=== PATIENT | male | born 1980 | race Asian ===

== ENCOUNTER 2023-04-24 14:37 | Inpatient (IN) | payer MEDICAID ==
[~2023-04-24] VITALS: Ht 170.2 cm; Wt 67.6 kg
[~2023-04-24 14:37] MED LIST: ACET-868 GT; CARB-273 EACHEYE; CIPR-263 PO; DARB100V SQ; HEPA0.5D3 SQ; IPRA3AMP23 NEB; LANS30CA56 GT; LEVA1.2528 IH; MIDO5TAB4 GT; NUT.237L67 GT; PANCREALIPASE GT; POLY17PO4 GT; SODI473S8 TP; SODI650T GT; SUCR1TAB GT; SULF1TAB48 PO
[2023-04-24] MEDS ORDERED: IV NS 0.9% 1,000 ML BAG IV ONE ×2 (15:00→15:30)
[2023-04-24] MEDS ORDERED: CEFEPIME 1 GM in IV D5W 50 ML IV ONE (15:30)
[2023-04-24] MEDS ORDERED: VANCOMYCIN 1 GM in IV D5W 250 ML IV ONE (15:30)
[2023-04-24 16:20] LABS: BASOPHILS % (AUTO) 0.2 % (0.0-2.0); EOSINOPHILS # (AUTO) 0.1 K/uL (0.0-0.7); EOSINOPHILS % (AUTO) 0.2 % (0.0-6.0); HEMATOCRIT 33 % (39-51); HEMOGLOBIN 10.4 g/dL (13.5-17.5); INR 1.09 (0.91-1.10); LYMPHOCYTES # (AUTO) 1.3 K/uL (0.8-4.8); LYMPHOCYTES % (AUTO) 4.8 % (20.0-44.0); MEAN CORPUSCULAR HEMOGLOBIN 30 PG (26.0-33.0); MEAN CORPUSCULAR HGB CONC 32 g/dl (31.0-36.0); MEAN CORPUSCULAR VOLUME 94 fL (80-96); MONOCYTES # (AUTO) 1.4 K/uL (0.1-1.30); MONOCYTES % (AUTO) 5.1 % (2.0-12.0); NEUTROPHILS # (AUTO) 23.6 K/uL (1.8-8.9); NEUTROPHILS % (AUTO) 89.7 % (43.0-81.0); PARTIAL THROMBOPLASTIN TIME 31.3 SEC (24.3-34.3); PLATELET COUNT (AUTO) 371 K/uL (150-450); PROTHROMBIN TIME 11.4 SECS (9.2-11.1); RED BLOOD CELL COUNT(AUTO) 3.46 MIL/uL (4.5-6.0); RED CELL DISTRIBUTION WIDTH 16.9 % (11.5-15.0); WHITE BLOOD COUNT (AUTO) 26.4 K/uL (4.3-11.0)
[2023-04-24 16:34] LABS: ALANINE AMINOTRANSFERASE 81 U/L (12-78); ALBUMIN 2.5 g/dL (3.4-5.0); ALKALINE PHOSPHATASE 151 U/L (46-116); ASPARTATE AMINOTRANSFERASE 51 U/L (15-37); BILIRUBIN,DIRECT 0.1 mg/dL (0.0-0.2); BILIRUBIN,TOTAL 0.4 mg/dL (0.2-1.0); CALCIUM, SERUM 8.8 mg/dL (8.5-10.1); CARBON DIOXIDE 29 mmol/L (21-32); CHLORIDE 99 mmol/L (98-107); CREATININE 3.8 mg/dL (0.6-1.3); GLUCOSE 125 mg/dL (74-106); POTASSIUM 5.5 mmol/L (3.5-5.1); SODIUM SERUM 139 mmol/L (136-145)
[2023-04-24 16:45] LABS: UREA NITROGEN, BLOOD 98 mg/dL (7-18)
[2023-04-24 16:51] LABS: LACTIC ACID 2.6 mmol/L (0.4-2.0)
[2023-04-24] MEDS ORDERED: ONDA4TAB5 GT (17:29)
[2023-04-24] MEDS ORDERED: BLOO-668 IN (17:29)
[2023-04-24] MEDS ORDERED: METO25TA6 GT (17:29)
[2023-04-24] MEDS ORDERED: AMIN30LI2 GT (17:29)
[2023-04-24] MEDS ORDERED: CLOP75TA15 GT (17:29)
[2023-04-24] MEDS ORDERED: SODI1POW44 GT (17:29)
[2023-04-24] MEDS ORDERED: CEFD300C3 GT (17:29)
[2023-04-24] MEDS ORDERED: INSU100V39 SQ (17:29)
[2023-04-24] MEDS ORDERED: ASCO-340 GT (17:29)
[2023-04-24] MEDS ORDERED: MULT-754 GT (17:29)
[2023-04-24] MEDS ORDERED: LORA-259 GT (17:29)
[2023-04-24] MEDS ORDERED: HYDR-4076 PO (17:29)
[2023-04-24] MEDS ORDERED: ZINC50TA39 GT (17:29)
[2023-04-24] MEDS ORDERED: ASPI-1169 GT (17:29)
[2023-04-24] MEDS ORDERED: Z GUARD REMEDY 4 OZ OINT TP PRN (18:30)
[2023-04-24] MEDS ORDERED: ONDANSETRON HCL/PF 4 MG/2 ML VIAL IVP PRN (18:30)
[2023-04-24] MEDS ORDERED: SODIUM POLYSTYRENE SULFONATE 15 G/60 ML BOTTLE PEG ONE (18:30)
[2023-04-24] MEDS ORDERED: NOREPINEPHRINE 8 MG in IV NS 0.9% 242 ML IV PRN ×3 (18:30→19:00)
[2023-04-24] MEDS ORDERED: ASPIRIN 300 MG/SUPP.RECT RC STA (18:33)
[2023-04-24 19:00] VITALS: BP 95/58; O2SAT 97
[2023-04-24 20:00] VITALS: BP 119/81; TEMP 98.3; O2SAT 98
[2023-04-24] MEDS ORDERED: CEFEPIME 2 GM in IV D5W 100 ML IV SCH (20:00)
[2023-04-24 21:00] VITALS: BP 101/74; O2SAT 100
[2023-04-24] MEDS ORDERED: SODIUM POLYSTYRENE SULFONATE 15 G/60 ML BOTTLE ONE (21:10)
[2023-04-24] MEDS: HEPARIN SODIUM, PORCINE 5000 UNITS/1 ML VIAL SQ SCH (21:14)
[2023-04-24] MEDS ORDERED: LIDOCAINE 2% JEL UROJET 10 ML MM ONE (21:30)
[2023-04-24] MEDS ORDERED: ASPIRIN 300 MG/SUPP.RECT RC ONE (21:53)
[2023-04-24 22:00] VITALS: BP 107/73; O2SAT 100
[2023-04-24 23:00] VITALS: BP 107/57; O2SAT 100
[2023-04-24] MEDS ORDERED: IV NS 0.9% 250 ML IV PRN ×2 (23:30)
[2023-04-25] VITALS (24 sets, daily range): BP systolic 90–132; BP diastolic 58–80; TEMP 97.3–99; O2SAT 95–100
[2023-04-25] MEDS: CEFEPIME 2 GM in IV D5W 100 ML IV SCH (04:21)
[2023-04-25 05:50] LABS: BASOPHILS % (AUTO) 0.3 % (0.0-2.0); EOSINOPHILS # (AUTO) 0.1 K/uL (0.0-0.7); HEMATOCRIT 28 % (39-51); HEMOGLOBIN 9.1 g/dL (13.5-17.5); LYMPHOCYTES # (AUTO) 0.8 K/uL (0.8-4.8); LYMPHOCYTES % (AUTO) 5.7 % (20.0-44.0); MEAN CORPUSCULAR HEMOGLOBIN 31 PG (26.0-33.0); MEAN CORPUSCULAR HGB CONC 33 g/dl (31.0-36.0); MEAN CORPUSCULAR VOLUME 94 fL (80-96); MONOCYTES # (AUTO) 0.7 K/uL (0.1-1.30); MONOCYTES % (AUTO) 5.1 % (2.0-12.0); NEUTROPHILS # (AUTO) 12.2 K/uL (1.8-8.9); NEUTROPHILS % (AUTO) 87.9 % (43.0-81.0); PLATELET COUNT (AUTO) 265 K/uL (150-450); RED BLOOD CELL COUNT(AUTO) 2.97 MIL/uL (4.5-6.0); RED CELL DISTRIBUTION WIDTH 16.6 % (11.5-15.0); WHITE BLOOD COUNT (AUTO) 13.9 K/uL (4.3-11.0)
[2023-04-25 06:04] LABS: ABG BASE EXCESS 2.5 mmol/L; ABG OXYGEN SATURATION 95.2 % (92.0-98.5); ABG PCO2 34.5 mmHg (35.0-45.0); ABG PO2 73.1 mmHg (75.0-100.0); AaDO2 100.3 mmHg; COHb 0.3 % (0.5-1.5); MetHb 0.3 % (0.0-1.5); O2Hb 94.6 % (94.0-97.0); PEEP,BG 5 cm H2O; SITE, ABG Right Radial
[2023-04-25 06:14] LABS: ALBUMIN 2.3 g/dL (3.4-5.0); BILIRUBIN,DIRECT 0.1 mg/dL (0.0-0.2); BILIRUBIN,TOTAL 0.4 mg/dL (0.2-1.0); CALCIUM, SERUM 8.4 mg/dL (8.5-10.1); TOTAL PROTEIN, SERUM 7.2 g/dL (6.4-8.2)
[2023-04-25 06:18] LABS: CALCIUM, SERUM 8.5 mg/dL (8.5-10.1); MAGNESIUM 2.3 mg/dL (1.8-2.4); PHOSPHORUS 3.2 mg/dL (2.5-4.9)
[2023-04-25 06:53] LABS: THYROID STIMULATING HORMONE 2.39 uIU/mL (0.358-3.74)
[2023-04-25] MEDS ORDERED: VANCOMYCIN 500 MG in IV D5W 100 ML IV PRN (09:00)
[2023-04-25] MEDS: HEPARIN SODIUM, PORCINE 5000 UNITS/1 ML VIAL SQ SCH ×2 (09:29→21:00)
[2023-04-25] MEDS: DAKINS QUARTER STRENGTH (0.125%) 480 ML BOTTLE TOP SCH (10:24)
[2023-04-25] MEDS: PANTOPRAZOLE 40 MG VIAL IV SCH (14:07)
[2023-04-25] MEDS ORDERED: DAKINS QUARTER STRENGTH (0.125%) 480 ML BOTTLE TOP SCH (21:30)
[2023-04-26] VITALS (15 sets, daily range): BP systolic 102–133; BP diastolic 68–83; TEMP 97.8–99.8; O2SAT 97–100
[2023-04-26] MEDS: CEFEPIME 2 GM in IV D5W 100 ML IV SCH (03:08)
[2023-04-26 04:35] LABS: BASOPHILS % (AUTO) 0.5 % (0.0-2.0); EOSINOPHILS # (AUTO) 0.5 K/uL (0.0-0.7); EOSINOPHILS % (AUTO) 4.6 % (0.0-6.0); HEMATOCRIT 27 % (39-51); HEMOGLOBIN 8.7 g/dL (13.5-17.5); LYMPHOCYTES # (AUTO) 0.7 K/uL (0.8-4.8); LYMPHOCYTES % (AUTO) 6.5 % (20.0-44.0); MEAN CORPUSCULAR HEMOGLOBIN 31 PG (26.0-33.0); MEAN CORPUSCULAR HGB CONC 33 g/dl (31.0-36.0); MEAN CORPUSCULAR VOLUME 94 fL (80-96); MONOCYTES # (AUTO) 0.5 K/uL (0.1-1.30); MONOCYTES % (AUTO) 5.4 % (2.0-12.0); NEUTROPHILS # (AUTO) 8.3 K/uL (1.8-8.9); PLATELET COUNT (AUTO) 310 K/uL (150-450); RED BLOOD CELL COUNT(AUTO) 2.81 MIL/uL (4.5-6.0); RED CELL DISTRIBUTION WIDTH 16.3 % (11.5-15.0)
[2023-04-26 04:51] LABS: CALCIUM, SERUM 9.3 mg/dL (8.5-10.1); CREATININE 2.4 mg/dL (0.6-1.3); MAGNESIUM 2.2 mg/dL (1.8-2.4); PHOSPHORUS 2.8 mg/dL (2.5-4.9); POTASSIUM 3.1 mmol/L (3.5-5.1)
[2023-04-26] MEDS: POTASSIUM CL. PREMIX PERIPHER. 50 ML IV SCH ×4 (08:19→13:21)
[2023-04-26] MEDS: HEPARIN SODIUM, PORCINE 5000 UNITS/1 ML VIAL SQ SCH ×2 (08:28→20:04)
[2023-04-26] MEDS: DAKINS QUARTER STRENGTH (0.125%) 480 ML BOTTLE TOP SCH (08:29)
[2023-04-26] MEDS: PANTOPRAZOLE 40 MG VIAL IV SCH (14:11)
[2023-04-26] MEDS: NEPRO 1,000 ML BOTTLE GT PRN (16:47)
[2023-04-27] VITALS: BP 110/70; TEMP 98.4; O2SAT 100
[2023-04-27] MEDS: CEFEPIME 1 GM in IV D5W 50 ML IV SCH (03:08)
[2023-04-27 04:00] VITALS: BP 127/74; TEMP 99; O2SAT 100
[2023-04-27 07:07] LABS: RAPID PLASMA REAGIN QUAL. Non Reactive (Non Reactive)
[2023-04-27 07:21] LABS: BASOPHILS % (AUTO) 0.2 % (0.0-2.0); EOSINOPHILS # (AUTO) 0.5 K/uL (0.0-0.7); EOSINOPHILS % (AUTO) 4.9 % (0.0-6.0); HEMATOCRIT 26 % (39-51); HEMOGLOBIN 8.4 g/dL (13.5-17.5); LYMPHOCYTES # (AUTO) 0.6 K/uL (0.8-4.8); LYMPHOCYTES % (AUTO) 6.3 % (20.0-44.0); MEAN CORPUSCULAR HEMOGLOBIN 31 PG (26.0-33.0); MEAN CORPUSCULAR HGB CONC 33 g/dl (31.0-36.0); MEAN CORPUSCULAR VOLUME 95 fL (80-96); MONOCYTES # (AUTO) 0.9 K/uL (0.1-1.30); MONOCYTES % (AUTO) 9.6 % (2.0-12.0); NEUTROPHILS # (AUTO) 7.4 K/uL (1.8-8.9); PLATELET COUNT (AUTO) 261 K/uL (150-450); RED BLOOD CELL COUNT(AUTO) 2.71 MIL/uL (4.5-6.0); RED CELL DISTRIBUTION WIDTH 16.3 % (11.5-15.0); WHITE BLOOD COUNT (AUTO) 9.4 K/uL (4.3-11.0)
[2023-04-27 07:43] LABS: CALCIUM, SERUM 9.5 mg/dL (8.5-10.1); CREATININE 3.4 mg/dL (0.6-1.3); MAGNESIUM 2.5 mg/dL (1.8-2.4); PHOSPHORUS 3.6 mg/dL (2.5-4.9); POTASSIUM 3.7 mmol/L (3.5-5.1)
[2023-04-27 08:00] VITALS: BP 121/70; TEMP 98.8; O2SAT 100
[2023-04-27] MEDS: HEPARIN SODIUM, PORCINE 5000 UNITS/1 ML VIAL SQ SCH ×2 (08:41→20:56)
[2023-04-27] MEDS: DAKINS QUARTER STRENGTH (0.125%) 480 ML BOTTLE TOP SCH (08:41)
[2023-04-27 12:00] VITALS: BP 133/77; TEMP 98.8; O2SAT 100
[2023-04-27 16:00] VITALS: BP 116/75; TEMP 98.8; O2SAT 97
[2023-04-27 20:00] VITALS: BP 113/71; TEMP 98.5; O2SAT 97
[2023-04-28] VITALS: BP 127/84; TEMP 98.1; O2SAT 95
[2023-04-28] MEDS: CEFEPIME 1 GM in IV D5W 50 ML IV SCH (02:32)
[2023-04-28 04:00] VITALS: BP 110/69; TEMP 98.5; O2SAT 100
[2023-04-28 07:58] LABS: CALCIUM, SERUM 9.6 mg/dL (8.5-10.1); CREATININE 2.8 mg/dL (0.6-1.3); MAGNESIUM 2.3 mg/dL (1.8-2.4); PHOSPHORUS 3.6 mg/dL (2.5-4.9); POTASSIUM 3.8 mmol/L (3.5-5.1)
[2023-04-28 08:00] VITALS: BP 124/75; TEMP 98; O2SAT 20; O2SAT 99
[2023-04-28 08:06] LABS: BASOPHILS % (AUTO) 0.4 % (0.0-2.0); EOSINOPHILS # (AUTO) 0.7 K/uL (0.0-0.7); EOSINOPHILS % (AUTO) 6.6 % (0.0-6.0); HEMATOCRIT 28 % (39-51); HEMOGLOBIN 9.1 g/dL (13.5-17.5); LYMPHOCYTES # (AUTO) 0.6 K/uL (0.8-4.8); LYMPHOCYTES % (AUTO) 6.3 % (20.0-44.0); MEAN CORPUSCULAR HEMOGLOBIN 31 PG (26.0-33.0); MEAN CORPUSCULAR HGB CONC 33 g/dl (31.0-36.0); MEAN CORPUSCULAR VOLUME 95 fL (80-96); MONOCYTES # (AUTO) 0.6 K/uL (0.1-1.30); MONOCYTES % (AUTO) 6.1 % (2.0-12.0); NEUTROPHILS # (AUTO) 8.1 K/uL (1.8-8.9); NEUTROPHILS % (AUTO) 80.6 % (43.0-81.0); PLATELET COUNT (AUTO) 304 K/uL (150-450); RED BLOOD CELL COUNT(AUTO) 2.95 MIL/uL (4.5-6.0); RED CELL DISTRIBUTION WIDTH 16.2 % (11.5-15.0); WHITE BLOOD COUNT (AUTO) 10.1 K/uL (4.3-11.0)
[2023-04-28] MEDS: DAKINS QUARTER STRENGTH (0.125%) 480 ML BOTTLE TOP SCH (08:47)
[2023-04-28] MEDS: PANTOPRAZOLE 40 MG/PACK PACK GT SCH (08:47)
[2023-04-28] MEDS: HEPARIN SODIUM, PORCINE 5000 UNITS/1 ML VIAL SQ SCH ×2 (08:48→21:39)
[2023-04-28 12:00] VITALS: BP 128/70; TEMP 98; O2SAT 100
[2023-04-28] MEDS: NEPRO 1,000 ML BOTTLE GT PRN (15:04)
[2023-04-28 16:00] VITALS: BP 124/76; TEMP 98.2; O2SAT 100
[2023-04-28] MEDS: PROSOURCE / PROSTAT (PYXIS) 30 ML UDC GT SCH (16:58)
[2023-04-28] MEDS: ARGININE/GLUTAMINE/CALCIUM BMB 1 EACH POWD.PACK GT SCH (16:58)
[2023-04-28 20:00] VITALS: BP 114/64; TEMP 98.4; O2SAT 96
[2023-04-29] VITALS: BP 126/70; TEMP 97.7; O2SAT 99
[2023-04-29] MEDS: CEFEPIME 1 GM in IV D5W 50 ML IV SCH (02:17)
[2023-04-29 04:00] VITALS: BP 114/79; TEMP 97.9; O2SAT 100
[2023-04-29 07:41] LABS: BASOPHILS % (AUTO) 0.5 % (0.0-2.0); EOSINOPHILS # (AUTO) 0.7 K/uL (0.0-0.7); EOSINOPHILS % (AUTO) 8.1 % (0.0-6.0); HEMATOCRIT 30 % (39-51); HEMOGLOBIN 9.9 g/dL (13.5-17.5); LYMPHOCYTES # (AUTO) 0.8 K/uL (0.8-4.8); LYMPHOCYTES % (AUTO) 9.2 % (20.0-44.0); MEAN CORPUSCULAR HEMOGLOBIN 31 PG (26.0-33.0); MEAN CORPUSCULAR HGB CONC 33 g/dl (31.0-36.0); MEAN CORPUSCULAR VOLUME 95 fL (80-96); MONOCYTES # (AUTO) 0.7 K/uL (0.1-1.30); MONOCYTES % (AUTO) 7.9 % (2.0-12.0); NEUTROPHILS # (AUTO) 6.7 K/uL (1.8-8.9); NEUTROPHILS % (AUTO) 74.3 % (43.0-81.0); PLATELET COUNT (AUTO) 312 K/uL (150-450); RED BLOOD CELL COUNT(AUTO) 3.18 MIL/uL (4.5-6.0)
[2023-04-29 07:42] LABS: CALCIUM, SERUM 9.7 mg/dL (8.5-10.1); CREATININE 3.6 mg/dL (0.6-1.3); MAGNESIUM 2.4 mg/dL (1.8-2.4); PHOSPHORUS 4.4 mg/dL (2.5-4.9); POTASSIUM 3.8 mmol/L (3.5-5.1)
[2023-04-29 08:00] VITALS: BP 133/73; TEMP 97.8; O2SAT 100
[2023-04-29] MEDS: ARGININE/GLUTAMINE/CALCIUM BMB 1 EACH POWD.PACK GT SCH (09:30)
[2023-04-29] MEDS: PANTOPRAZOLE 40 MG/PACK PACK GT SCH (09:30)
[2023-04-29] MEDS: PROSOURCE / PROSTAT (PYXIS) 30 ML UDC GT SCH (09:30)
[2023-04-29] MEDS: DAKINS QUARTER STRENGTH (0.125%) 480 ML BOTTLE TOP SCH (09:31)
[2023-04-29] MEDS: HEPARIN SODIUM, PORCINE 5000 UNITS/1 ML VIAL SQ SCH (09:36)
[2023-04-29] MEDS ORDERED: CEFE1FRO IV (09:36)
[2023-04-29 12:00] VITALS: BP 100/90; TEMP 98; O2SAT 100
[2023-04-29] MEDS ORDERED: VANCOMYCIN 1 GM in IV D5W 250ml IV ONE ×2 (13:00→15:00)
[2023-04-29] MEDS ORDERED: METRONIDAZOLE 500 MG TABLET PO SCH (15:00)
== END 2023-04-29 16:40 | DRG 710 ==
LOC: ER 14:42 → ICU 17:18 → TELE1 04-26 11:28
PROVIDERS: ADMIT Nurse Practitioner Family; ATTEND Internal Medicine
PROC: 5A1955Z Respiratory Ventilation, Greater than 96 Consecutive Hours (ICD-10-PCS; principal; 2023-04-24)
PROC: 0JH63WZ Insertion of Totally Implantable Vascular Access Device into Chest Subcutaneous Tissue and Fascia, Percutaneous Approach (ICD-10-PCS; 2023-04-24)
PROC: 05H633Z Insertion of Infusion Device into Left Subclavian Vein, Percutaneous Approach (ICD-10-PCS; 2023-04-24)
PROC: B547ZZA Ultrasonography of Left Subclavian Vein, Guidance (ICD-10-PCS; 2023-04-24)
PROC: 5A1D70Z Performance of Urinary Filtration, Intermittent, Less than 6 Hours Per Day (ICD-10-PCS; 2023-04-25)
PROC: 0QB10ZZ Excision of Sacrum, Open Approach (ICD-10-PCS; 2023-04-27)
DX: A41.9 Sepsis, unspecified organism (principal); R65.21 Severe sepsis with septic shock; J96.21 Acute and chronic respiratory failure with hypoxia; G93.41 Metabolic encephalopathy; J15.6 Pneumonia due to other Gram-negative bacteria; L89.154 Pressure ulcer of sacral region, stage 4; R53.2 Functional quadriplegia; L89.893 Pressure ulcer of other site, stage 3; E87.20 Acidosis, unspecified; I12.0 Hypertensive chronic kidney disease with stage 5 chronic kidney disease or end stage renal disease; I21.A1 Myocardial infarction type 2; G93.1 Anoxic brain damage, not elsewhere classified; N18.6 End stage renal disease; E87.5 Hyperkalemia; R74.01 Elevation of levels of liver transaminase levels; R13.10 Dysphagia, unspecified; Y95 Nosocomial condition; M24.571 Contracture, right ankle; M24.572 Contracture, left ankle; K21.9 Gastro-esophageal reflux disease without esophagitis; E11.22 Type 2 diabetes mellitus with diabetic chronic kidney disease; E87.6 Hypokalemia; D63.8 Anemia in other chronic diseases classified elsewhere; E86.0 Dehydration; Z99.2 Dependence on renal dialysis; Z86.74 Personal history of sudden cardiac arrest; Z99.11 Dependence on respirator [ventilator] status; Z93.0 Tracheostomy status; Z93.1 Gastrostomy status; Z79.01 Long term (current) use of anticoagulants; Z79.82 Long term (current) use of aspirin; Z79.02 Long term (current) use of antithrombotics/antiplatelets; Z79.4 Long term (current) use of insulin; L89.326 Pressure-induced deep tissue damage of left buttock; L89.316 Pressure-induced deep tissue damage of right buttock
CPT/HCPCS: 31720; 36415; 36600; 71045-TC; 80048-TC; 80061-TC; 80076-TC; 80202-TC; 82728-TC; 82962-TC; 83540-TC; 83605-TC; 83735-TC; 84100-TC; 84443-TC; 84484-TC; 85025-TC; 85730-TC; 86592; 86593; 86803; 87040-TC; 87081-TC; 87806; 94003-TC; 94760-TC; 94761-TC; 94799-TC; 99082-TC; A4223; A6403; C9113; G0378; G0480; J0692; J1644; J3370; J3480; J3490; J7030; J7050; J7060